=== PATIENT | male | born 1955 | race Hispanic/Latino ===

== ENCOUNTER → 2018-03-04 | Outpatient (CLI) | payer OTHER | END | disposition home or self-care (01) | LOC: OIH 12:18 | PROVIDERS: ATTEND Internal Medicine | DX: Z13.6 Encounter for screening for cardiovascular disorders (principal) | CPT/HCPCS: 75571 ==

== ENCOUNTER → 2019-11-19 | Outpatient (CLI) | payer OTHER | END | disposition home or self-care (01) | LOC: OIH 07:54 | PROVIDERS: ATTEND Internal Medicine | DX: Z13.6 Encounter for screening for cardiovascular disorders (principal) | CPT/HCPCS: 75571 ==

== ENCOUNTER → 2020-11-23 | Outpatient (CLI) | payer OTHER | END | disposition home or self-care (01) | LOC: RAH 11:25 | PROVIDERS: ATTEND Internal Medicine | DX: Z13.6 Encounter for screening for cardiovascular disorders (principal); I25.10 Atherosclerotic heart disease of native coronary artery without angina pectoris | CPT/HCPCS: 75571 ==